=== PATIENT | male | born 1995 | race Caucasian/White ===

== ENCOUNTER 2016-09-13 13:52 | Emergency (ER) | payer BC ==
[2016-09-13] VITALS (14 sets, daily range): BP systolic 100–126; BP diastolic 60–76; PULSE 76–145; TEMP 36.8–36.9; O2SAT 98–99; Ht 177.8 cm; Wt 67.4 kg
[~2016-09-13] VITALS: Ht 177.8 cm; Wt 67.4 kg
[~2016-09-13 13:52] MED LIST: ASPI81TA28 PO; ATEN-173 PO; FAMO20TA11 PO; NAPR500T3 PO
[2016-09-13] MEDS ORDERED: ONDANSETRON INJ 2 MG/ML 2 ML VIAL IV STA (14:01)
[2016-09-13] MEDS ORDERED: SODIUM CHLORIDE 0.9% 1000ML 1,000 ML IV STA (14:01)
[2016-09-13] MEDS ORDERED: THIAMINE HCL 100 MG/ML 2 ML VIAL IV STA (14:04)
--- NOTE | 2016-09-13 14:08 | EMERGENCY ROOM VISIT NOTE ---
History Report prepared by Swapnil: Sofia Blood Under the Supervision of: Dr. Brad Key D.O. First contact with patient: 13:58 Chief Complaint: IRREGULAR HEARTBEAT Stated Complaint: A-FIB HX: CARDIAC Nursing Triage Summary: pt c/o afib started today at noon. has heart monitor has hx of afib. has needed to be shocked in past meds do not work History of Present Illness The patient is a 21 year old male who presents to the Emergency Room with complaints of a persistent irregular heartbeat. He reports he started experiencing atrial fibrillation around noon today. He admits to a history of atrial fibrillation and takes daily medication for it. He notes he has needed to be shocked in the past. The patient follows with Cardiologists back home in [place] and does not see anyone locally here [place]. He has been cardioverted 4 times in the past year and has recently undergone a cardiac catheterization and echocardiogram. The patient admits to some shortness of breath but denies any chest pain. He admits he drank alcohol last night and woke up "hungover" this morning. He vomited this morning and complains of a headache. He felt the atrial fibrillation begin after the last time he vomited this morning. He denies any recent illegal drug use. He denies any weakness or numbness or tingling in his feet. Source of History: patient Onset: 1200 today Position: chest Timing: other (persistent) Modifying Factors (Worsening): other Associated Symptoms: + SOB, + headache, + nausea, + vomiting, No chest pain Review of Systems See HPI for pertinent positives & negatives. A total of 10 systems reviewed and were otherwise negative. Past Medical & Surgical Medical Problems: (1) A-fib (2) Atrial fibrillation with RVR (3) Congenital heart defect Social History Smoking Status: Never Smoker Alcohol Use: occasionally Drug Use: marijuana Marital Status: single Housing Status: lives with roommate Occupation Status: [employer] Current/Historical Medications Scheduled Aspirin (Aspirin Ec), 81 MG PO DAILY Atenolol (Tenormin), 25 MG PO BID Bupropion Hcl (Wellbutrin Xl), 150 MG PO QAM Celecoxib (CeleBREX), 200 MG PO BID Allergies Coded Allergies: No Known Allergies (Unverified , 09/13/16) Physical Exam Vital Signs Date Time Temp Pulse Resp B/P Pulse Ox O2 Delivery O2 Flow Rate FiO2 09/13/16 17:43 116/74 09/13/16 17:30 76 18 126/76 98 Room Air 2.0 09/13/16 17:28 126/66 09/13/16 17:22 79 99 09/13/16 17:15 76 18 124/70 98 Room Air 09/13/16 17:13 122/68 09/13/16 17:08 116/69 09/13/16 17:05 36.9 76 18 111/70 98 Room Air 09/13/16 17:03 111/70 09/13/16 17:00 81 12 121/76 99 Room Air 09/13/16 16:58 121/76 09/13/16 16:55 81 12 114/60 99 Room Air 2.0 09/13/16 16:53 114/60 09/13/16 16:52 67 16 100 09/13/16 16:50 81 12 100/61 99 Room Air 2.0 09/13/16 16:48 100/61 09/13/16 16:45 81 12 105/65 99 Room Air 2.0 09/13/16 16:43 105/65 09/13/16 16:43 81 12 104/60 99 Room Air 2.0 09/13/16 16:42 104/60 09/13/16 16:41 90 8 108/60 99 Room Air 2.0 09/13/16 16:40 66 09/13/16 16:39 108/60 09/13/16 16:39 145 18 112/70 99 Nasal Cannula 2.0 09/13/16 16:38 112/70 09/13/16 16:37 102/54 09/13/16 16:36 145 18 107/65 99 Nasal Cannula 2.0 09/13/16 16:35 36.8 145 18 107/64 99 09/13/16 16:34 107/71 09/13/16 16:22 83 16 100 09/13/16 15:52 102 12 97 09/13/16 15:22 142 22 09/13/16 14:52 109 19 98 09/13/16 14:30 138 16 116/89 99 09/13/16 14:22 117 14 96 09/13/16 14:14 136 09/13/16 14:11 116/89 09/13/16 14:02 98 09/13/16 13:53 36.4 157 18 111/69 96 Room Air Physical Exam GENERAL: Patient is awake, alert, in no acute distress, patient is resting comfortably and showing no signs of anxiety EYES: Bilateral conjunctival injection. The pupils are round and reactive. EARS, NOSE, MOUTH AND THROAT: The nose is without any evidence of any deformity. Mucous membranes are dry, tongue is midline NECK: The neck is nontender and supple. RESPIRATORY: Normal respiratory effort is noted there is no evidence of wheezing rhonchi or rales CARDIOVASCULAR: Tachycardic heart rate and irregular rhythm noted, there are no definite murmurs noted to auscultation GASTROINTESTINAL: The abdomen is soft. Bowel sounds are present in all quadrants. Abdomen is nontender MUSCULOSKELETAL/EXTREMITIES: There is no evidence of gross deformity full range of motion is noted in the hips and shoulders SKIN: There is no obvious evidence of any rash. There are no petechiae, pallor or cyanosis noted. NEUROLOGIC: Patient is awake alert and oriented x3 Medical Decision & Procedures ER Provider Diagnostic Interpretation: This X-Ray was reviewed and interpreted by myself and the radiologist. CHEST ONE VIEW PORTABLE IMPRESSION: Negative chest. Electronically signed by: Reggie Oquendo M.D. 09/13/2016 2:26 PM Laboratory Results 09/13/16 14:10 Red Blood Count 5.34, Mean Corpuscular Volume 84.3, Mean Corpuscular Hemoglobin 30.5, Mean Corpuscular Hemoglobin Concent 36.2, Mean Platelet Volume 10.2, Neutrophils (%) (Auto) 82.4, Lymphocytes (%) (Auto) 9.1, Monocytes (%) (Auto) 7.4, Eosinophils (%) (Auto) 0.6, Basophils (%) (Auto) 0.3, Neutrophils # (Auto) 8.35, Lymphocytes # (Auto) 0.92, Monocytes # (Auto) 0.75, Eosinophils # (Auto) 0.06, Basophils # (Auto) 0.03 09/13/16 14:10 Test 09/13/16 14:10 White Blood Count 10.13 K/uL (4.8-10.8) Red Blood Count 5.34 M/uL (4.7-6.1) Hemoglobin 16.3 g/dL (14.0-18.0) Hematocrit 45.0 % (42-52) Mean Corpuscular Volume 84.3 fL (80-100) Mean Corpuscular Hemoglobin 30.5 pg (25-34) Mean Corpuscular Hemoglobin Concent 36.2 g/dl (32-36) Platelet Count 202 K/uL (130-400) Mean Platelet Volume 10.2 fL (7.4-10.4) Neutrophils (%) (Auto) 82.4 % Lymphocytes (%) (Auto) 9.1 % Monocytes (%) (Auto) 7.4 % Eosinophils (%) (Auto) 0.6 % Basophils (%) (Auto) 0.3 % Neutrophils # (Auto) 8.35 K/uL (1.4-6.5) Lymphocytes # (Auto) 0.92 K/uL (1.2-3.4) Monocytes # (Auto) 0.75 K/uL (0.11-0.59) Eosinophils # (Auto) 0.06 K/uL (0-0.5) Basophils # (Auto) 0.03 K/uL (0-0.2) RDW Standard Deviation 40.0 fL (36.4-46.3) RDW Coefficient of Variation 13.2 % (11.5-14.5) Immature Granulocyte % (Auto) 0.2 % Immature Granulocyte # (Auto) 0.02 K/uL (0.00-0.02) Prothrombin Time 11.4 SECONDS (9.0-12.0) Prothromb Time International Ratio 1.1 (0.9-1.1) Activated Partial Thromboplast Time 42.6 SECONDS (21.0-31.0) Partial Thromboplastin Ratio 1.6 Anion Gap 13.0 mmol/L (3-11) Est Creatinine Clear Calc Drug Dose 146.6 ml/min Estimated GFR () > 150.0 Estimated GFR (Non- 130.4 BUN/Creatinine Ratio 22.8 (10-20) Calcium Level 8.9 mg/dl (8.5-10.1) Magnesium Level 2.2 mg/dl (1.8-2.4) Total Bilirubin 0.6 mg/dl (0.2-1) Direct Bilirubin 0.1 mg/dl (0-0.2) Aspartate Amino Transf (AST/SGOT) 10 U/L (15-37) Alanine Aminotransferase (ALT/SGPT) 21 U/L (12-78) Alkaline Phosphatase 58 U/L (45-117) Troponin I < 0.015 ng/ml (0-0.045) Total Protein 8.0 gm/dl (6.4-8.2) Albumin 4.8 gm/dl (3.4-5.0) Lipase 181 U/L (73-393) Thyroid Stimulating Hormone (TSH) 1.050 uIu/ml (0.300-4.500) Free Thyroxine 1.08 ng/dl (0.80-1.60) Laboratory results per my review. Medications Administered Medications (Trade) Dose Ordered Sig/La Route Start Time Stop Time Status Last Admin Dose Admin Ondansetron HCl 4 mg 4 mg NOW STAT IV 09/13/16 14:01 09/13/16 14:03 DC 09/13/16 14:19 4 MG Sodium Chloride (Nss 1000ml) 1,000 ml @ 999 mls/hr Q1H1M STAT IV 09/13/16 14:01 09/13/16 15:01 DC 09/13/16 14:19 999 MLS/HR Thiamine HCl (Vitamin B-1 Inj) 100 mg NOW STAT IV 09/13/16 14:04 09/13/16 14:05 DC 09/13/16 14:18 100 MG Procedure Cardioversion note: Indication: Rapid Atrial Fibrillation Written consent was obtained after the risks and benefits were explained, including but not limited to pain, thermal burn, allergic reaction, aspiration, airway obstruction, laryngospasm, infection, hypotension, and cardiorespiratory arrest. At this time, the risks of the procedure are less than the risks of NOT performing the procedure. A time out was taken and the correct patient and procedure identified. The patient was on 100% via NRB and end tidal CO2 monitoring prior to the procedure. Suction, airway equipment, medications, respiratory equipment, ACLS cart, and appropriate personnel were prepared prior to the initiation of the procedure. Sedation was achieved utilizing 70 mg Propofol. Further details of the procedure can be found in Dr. lGoria note. ECG Indication: palpitations Rate (beats per minute): 153 Rhythm: atrial fibrillation Findings: RBBB, T-wave inversion (Lateral), other (no PVC) Change: no significant change (No significant change when compared to June 21, 2016) Change: 2nd EKG performed on 09/13/16: Normal sinus rhythm, rate of 68, no ectopy, no acute ST segment abnormalities, resolution of previously noted atrial fibrillation. ED Course 1358: The patient was evaluated in room A2. A complete history and physical examination were performed. 1401: NSS 1000 ml @ 999 mls/hr IV, Zofran 4 mg IV. 1404: Thiamine HCl 100 mcg IV. 1610: I discussed the patients case with Dr. Cates. He recommends performing cardioversion on the patient here in the ED. 1625: Etomidate 40 mg IV. 1629: Propofol 70 mg IV. 1740: I reevaluated the patient. He is feeling much better. I discussed his results and discharge instructions and he verbalized complete understanding and agreement. Medical Decision Prior records/ancillary studies reviewed. Triage Nursing notes reviewed. The patient's history was concerning for palpitations. Differential diagnosis: Etiologies such as premature contractions, electrolyte abnormality, cardiac dysrhythmia, thyroid dysfunction, pulmonary embolism, infection, gastrointestinal, as well as others were entertained. The patient is a 21-year-old male who presented to the emergency department for an evaluation of palpitations. The patient has a loop monitor which we were able to interrogate and determined that the patient went into atrial fibrillation at approximately 1230 this afternoon. The patient was treated with IV fluids in the emergency department. He also admits to significant alcoholic beverages last evening. I discussed the patient's laboratory radiographic studies with him. I also discussed the patient's condition with the on-call [facility] lithographic retoucher apprentice. At this time I do feel that the patient could be safely cardioverted using procedural sedation. The on-call lithographic retoucher apprentice agrees that this could be safe given the patient's acute onset of the atrial fibrillation and the success of these had with electrical cardioversion in the past. I discussed the risks and benefits of the procedural sedation as well as electrocardioversion with the patient. He agrees with the procedure this time. He is had this in the past. The patient was successfully electrical cardioverted using propofol for sedation. Please see the sedation as well as the procedure note for further details. The patient was reevaluated multiple times. The patient was feeling much better on subsequent reevaluation. The patient was encouraged to continue all medications as prescribed. He was also encouraged to avoid any further alcoholic beverages. He was encouraged to drink plenty clear liquids and follow-up with his primary care physician as well as his primary lithographic retoucher apprentice as soon as possible. He was also encouraged return to the emergency department immediately if symptoms change worsen or the need arises. Consults Time Called: 1605 Consulting Physician: Dr. Cates [facility] Returned Call: 1610 I discussed the patients case with Dr. Cates. He recommends performing cardioversion on the patient here in the ED. Impression Primary Impression: Atrial fibrillation with RVR Additional Impression: Palpitations Scribe Attestation The scribe's documentation has been prepared under my direction and personally reviewed by me in its entirety. I confirm that the note above accurately reflects all work, treatment, procedures, and medical decision making performed by me. Departure Information Dispostion Home / Self-Care Referrals No Doctor, Assigned (PCP) Patient Instructions ED Afib, ED Sedation Procedural Discon, [facility] Additional Instructions Follow-up with [facility] this week. Rest and avoid any strenuous activity. Continue all medications as prescribed. Drink plenty clear liquids and avoid any alcoholic beverages. Keep yourself well-hydrated. Return to the emergency department if symptoms change worsen or the need arises. Problem Qualifiers
[2016-09-13 14:19] LABS: BASO % 0.3 %; BASO ABS # 0.03 K/uL (0-0.2); COMPLETE YES; EOS % 0.6 %; IG% 0.2 %; LYMPH % 9.1 %; LYMPH ABS # 0.92 K/uL (1.2-3.4); MEAN CELL VOLUME 84.3 fL (80-100); MEAN CORPUSCULAR HEMOGLOBIN 30.5 pg (25-34); MEAN CORPUSCULAR HGB CONC 36.2 g/dl (32-36); MEAN PLATELET VOLUME 10.2 fL (7.4-10.4); MONO % 7.4 %; NEUT % 82.4 %; PLATELET COUNT 202 K/uL (130-400); RED BLOOD COUNT 5.34 M/uL (4.7-6.1); WHITE BLOOD COUNT 10.13 K/uL (4.8-10.8)
--- NOTE | 2016-09-13 14:28 | DIAGNOSTIC IMAGING REPORT ---
CHEST ONE VIEW PORTABLE CLINICAL HISTORY: CHEST PAIN dyspnea COMPARISON STUDY: 06/21/2016 FINDINGS: The bones soft tissues and hemidiaphragms are normal. The cardiomediastinal silhouette is normal. The lungs are clear. The pulmonary vasculature is normal. IMPRESSION: Negative chest. Electronically signed by: Reggie Oquendo M.D. 09/13/2016 2:26 PM Dictated Date/Time: 09/13/2016 2:26 PM
[2016-09-13 14:30] LABS: INR 1.1 (0.9-1.1); PARTIAL THROMBOPLASTIN RATIO 1.6; PROTHROMBIN TIME (PATIENT) 11.4 SECONDS (9.0-12.0)
[2016-09-13 14:51] LABS: ALT/SGPT 21 U/L (12-78); AST/SGOT 10 U/L (15-37); BLOOD UREA NITROGEN 17 mg/dl (7-18); BUN/CREATININE RATIO 22.8 (10-20); CALCIUM 8.9 mg/dl (8.5-10.1); CARBON DIOXIDE 23 mmol/L (21-32); CHLORIDE 108 mmol/L (98-107); CREATININE 0.76 mg/dl (0.60-1.40); GLUCOSE 83 mg/dl (70-99); MAGNESIUM 2.2 mg/dl (1.8-2.4); POTASSIUM 4.3 mmol/L (3.5-5.1); SODIUM 144 mmol/L (136-145)
[2016-09-13 14:59] LABS: ALKALINE PHOSPHATASE 58 U/L (45-117)
[2016-09-13] MEDS ORDERED: BUPRTAB PO (15:09)
[2016-09-13] MEDS ORDERED: CLB/200 PO (15:09)
[2016-09-13] MEDS ORDERED: ETOMIDATE 2 MG/ML 20 ML VIAL IV ONE (16:25)
[2016-09-13] MEDS ORDERED: PROPOFOL IV EMULSION 10 MG/ML 20 ML VIAL IV ONE (16:29)
--- NOTE | 2016-09-13 17:43 | EMERGENCY ROOM VISIT NOTE ---
ED Visit Note First contact with patient: 15:30 Procedure note: Electrical cardioversion Indication: atrial fibrillation Written consent was obtained after the risks and benefits were explained, including but not limited to pain, thermal burn, allergic reaction, aspiration, airway obstruction, laryngospasm, infection, hypotension, and cardiorespiratory arrest. At this time, the risks of the procedure are less than the risks of NOT performing the procedure. A time out was taken and the correct patient and procedure identified. The patient was on 100% via NRB and end tidal CO2 monitoring prior to the procedure. Suction, airway equipment, medications, respiratory equipment, ACLS cart, and appropriate personnel were prepared prior to the initiation of the procedure. Sedation was achieved utilizing Propofol. The biphasic defibrillator was set to 100 joules of energy and synched. After confirmation of sedation and "all clear" safety check the synchronized shock was delivered. This resulted in successful conversion of the dysrhythmia back into sinus rhythm at 83 BPM. See nursing notes for dosages and times. There were no complications and the patient recovered uneventfully from the procedure.
== END 2016-09-13 18:02 | disposition home or self-care (01) ==
LOC: C.EDB 13:53 → C.EDA 18:02
DX: I48.91 Unspecified atrial fibrillation (principal); R00.2 Palpitations; R51 Headache; R11.2 Nausea with vomiting, unspecified; Q24.9 Congenital malformation of heart, unspecified; F12.90 Cannabis use, unspecified, uncomplicated; R00.0 Tachycardia, unspecified; I45.10 Unspecified right bundle-branch block; Z79.82 Long term (current) use of aspirin

== ENCOUNTER 2016-12-05 12:00 | Emergency (ER) | payer BC ==
[~2016-12-05] VITALS: Ht 180.3 cm; Wt 67.2 kg
[~2016-12-05 12:00] MED LIST changes: +BUPRTAB PO; +CLB/200 PO; -FAMO20TA11 PO; -NAPR500T3 PO
[2016-12-05 12:01] VITALS: Ht 180.3 cm; Wt 67.2 kg
[2016-12-05 12:30] LABS: BASO % 0.4 %; BASO ABS # 0.03 K/uL (0-0.2); COMPLETE YES; EOS % 2.7 %; HEMATOCRIT 45.3 % (42-52); IG% 0.4 %; LYMPH % 14.5 %; LYMPH ABS # 1.07 K/uL (1.2-3.4); MEAN CELL VOLUME 84.7 fL (80-100); MEAN CORPUSCULAR HEMOGLOBIN 29.7 pg (25-34); MEAN CORPUSCULAR HGB CONC 35.1 g/dl (32-36); MEAN PLATELET VOLUME 9.8 fL (7.4-10.4); PLATELET COUNT 201 K/uL (130-400); RED BLOOD COUNT 5.35 M/uL (4.7-6.1); WHITE BLOOD COUNT 7.36 K/uL (4.8-10.8)
[2016-12-05] MEDS ORDERED: METOPROLOL TARTRATE 1 MG/ML VIAL IV STA (12:41)
[2016-12-05] MEDS ORDERED: SODIUM CHLORIDE 0.9% 1000ML 1,000 ML IV STA (12:41)
[2016-12-05 12:47] LABS: ALT/SGPT 22 U/L (12-78); AST/SGOT 10 U/L (15-37); BLOOD UREA NITROGEN 11 mg/dl (7-18); BUN/CREATININE RATIO 15.7 (10-20); CARBON DIOXIDE 27 mmol/L (21-32); CHLORIDE 107 mmol/L (98-107); CREATININE 0.69 mg/dl (0.60-1.40); GLUCOSE 104 mg/dl (70-99); MAGNESIUM 2.2 mg/dl (1.8-2.4); SODIUM 143 mmol/L (136-145)
[2016-12-05 12:49] LABS: ALKALINE PHOSPHATASE 59 U/L (45-117)
[2016-12-05 12:57] LABS: ISTAT CREATININE 0.6 mg/dl (0.6-1.3); ISTAT IONIZED CALCIUM 1.21 mmol/l (1.12-1.32)
[2016-12-05 13:00] VITALS: BP 130/72; PULSE 121; TEMP 36.8; O2SAT 96; O2SAT 99
[2016-12-05 13:01] LABS: INR 1.1 (0.9-1.1); PARTIAL THROMBOPLASTIN RATIO 1.8; PROTHROMBIN TIME (PATIENT) 11.5 SECONDS (9.0-12.0)
[2016-12-05] MEDS ORDERED: PROPOFOL IV EMULSION 10 MG/ML 20 ML VIAL IV ONE (13:05)
[2016-12-05 13:10] VITALS: BP 139/100; PULSE 139; O2SAT 99
--- NOTE | 2016-12-05 13:27 | EMERGENCY ROOM VISIT NOTE ---
Pre-Mod Sedation Assessment General Date of Moderate Sedation: Dec 05, 2016. Vital Signs: Vital Signs Past 12 Hours Date Time Temp Pulse Resp B/P Pulse Ox O2 Delivery O2 Flow Rate FiO2 12/05/16 13:22 105 12/05/16 13:18 142 12/05/16 13:12 133 12/05/16 13:00 144 21 98/63 96 Room Air 12/05/16 12:58 142 20 116/83 95 Room Air 12/05/16 12:56 133 116/83 12/05/16 12:26 139 13 128/74 95 Room Air 12/05/16 12:07 97 Room Air 12/05/16 12:01 36.5 86 20 140/80 96 Room Air Review Cardiovascular: no edema, no murmur, + tachycardia, + irregularly irregular Abdomen: normal bowel sounds, non tender, soft, no organomegaly, no pulsatile mass Lungs: chest non-tender, lungs clear, normal breath sounds, no respiratory distress, no accessory muscle use Airway Class: I Pre-Sedation Airway Assessment Oral Cavity: WNL Able to Visualize Vocal Cords: No Short Thick Neck: No Hx of Sleep Apnea: No Smoking Status: Never Smoker Mallampati Classification: Class I (Sft palate,uvula,fauces,pillar) ASA Classification: Class II (Afib RVR, recent ETOH) Procedure Planning Contraindications-for Mod Sed: None Yes Notes Patient attempted to eat bread 2 hours prior to sedation but immediately vomited it up. Aware risks of aspiration, vomiting, airway issues, etc. The planned sedation has been discussed with the patient and consent obtained. I have identified the patient, determined the appropriateness of sedation and have assessed the patient immediately prior to the procedure. All medicine(s) and interventions are by my order.
--- NOTE | 2016-12-05 13:28 | EMERGENCY ROOM VISIT NOTE ---
Post-Moderate Sedation Plan General Date of Moderate Sedation Dec 05, 2016. Vital Signs: Vital Signs Past 12 Hours Date Time Temp Pulse Resp B/P Pulse Ox O2 Delivery O2 Flow Rate FiO2 12/05/16 13:22 105 12/05/16 13:18 142 12/05/16 13:12 133 12/05/16 13:00 144 21 98/63 96 Room Air 12/05/16 12:58 142 20 116/83 95 Room Air 12/05/16 12:56 133 116/83 12/05/16 12:26 139 13 128/74 95 Room Air 12/05/16 12:07 97 Room Air 12/05/16 12:01 36.5 86 20 140/80 96 Room Air Review - Discharge Plan Post Moderate Sedation Plan: On clinical assessment, the patient appears to have tolerated the conscious sedation without complications. Patient is recovering as anticipated. Patient will continue to be monitored by nursing and may be discharged when conscious sedation discharge criteria are met.
--- NOTE | 2016-12-05 13:32 | EMERGENCY ROOM VISIT NOTE ---
ED Visit Note First contact with patient: 12:30 Procedural Sedation Indication: Cardioversion for Afib RVR. Last Ate: 11am - patient attempted to eat toast but vomiting shortly there-after Previous issues with sedation: none Snore: none Emergent: Yes ASA: 2 Dentures: none Time Out: 1310 Time Recovered: 1322 Total time: 20 minutes including pre-sedation discussions, sedation, post- sedation monitoring, etc Written consent was obtained after the risks and benefits were explained to the patient, including, but not limited to aspiration, allergic reaction, breathing difficulties, cardiac complications, vomiting, pain, event recall, bleeding, and /or infection. Discussed at length the risk of vomiting, especially fact that he attempted to eat 2 hours prior and has also already had some vomiting. Patient understands risks, and even discussed it with his mother who agrees with sedation. Pre-sedation examination and paperwork completed. The patient was on 100% oxygen via NRB prior to the procedure. Continuos end tidal CO2 monitoring, pulse oximetry, and cardiac monitoring were utilized. Suction, airway equipment, medications, respiratory equipment, and appropriate personnel were prepared prior to the initiation of the procedure. A time out was taken. Sedation was achieved utilizing 70 mg of propofol. After I observed the patient had reached the appropriate level of sedation the main procedure was performed without complication by Dr Medina. Sedation was discontinued and the monitoring continued. The patient recovered quickly from the effects of the medication without complication or adverse event.
[2016-12-05 13:48] VITALS: BP 125/79; PULSE 89; TEMP 36.9; O2SAT 97
[2016-12-05 14:19] VITALS: BP 139/84; PULSE 85; O2SAT 96
--- NOTE | 2016-12-05 18:46 | EMERGENCY ROOM VISIT NOTE ---
History Report prepared by Swapnil: Margret Fierro Under the Supervision of: Dr. Greg Medina M.D. First contact with patient: 12:09 Chief Complaint: IRREGULAR HEARTBEAT Stated Complaint: A-FIB HX: CARDIAC History of Present Illness The patient is a 21 year old male who presents to the Emergency Room with complaints of a constant irregular heartbeat beginning at 11:30AM today. The patient states that he was drinking last night, about 8-10 beers. He states that this morning he vomited from his hangover and this is when the irregular heartbeat began. He has a history of atrial fibrillation that occurs after drinking. He was told by his blocker and sewer to stop drinking. The patient states that this is the first time he drank since the atrial fibrillation occurred last time. He denies chest pain, loss of consciousness, shortness of breath or a fever. The patient denies being on blood thinners other than a baby aspirin which did not take today. Source of History: patient Onset: 1 hour OPERATIONS REPRESENTATIVE Position: other (global) Quality: other (irregular heartbeat) Timing: constant Modifying Factors (Relieving): other (none) Associated Symptoms: + vomiting, No LOC, No SOB, No chest pain, No fevers Review of Systems See HPI for pertinent positives & negatives. A total of 10 systems reviewed and were otherwise negative. Past Medical & Surgical Medical Problems: (1) A-fib (2) Atrial fibrillation with RVR (3) Congenital heart defect Family History Patient reports no known family medical history. Social History Smoking Status: Never Smoker Alcohol Use: occasionally Drug Use: marijuana Marital Status: single Housing Status: lives with roommate Occupation Status: [employer] student Current/Historical Medications Scheduled Aspirin (Aspirin Ec), 81 MG PO DAILY Atenolol (Tenormin), 25 MG PO BID Bupropion Hcl (Wellbutrin Xl), 150 MG PO QAM Celecoxib (CeleBREX), 200 MG PO BID Allergies Coded Allergies: No Known Allergies (Unverified , 09/13/16) Physical Exam Vital Signs Date Time Temp Pulse Resp B/P Pulse Ox O2 Delivery O2 Flow Rate FiO2 12/05/16 14:19 85 18 139/84 96 Room Air 12/05/16 13:55 89 0 98 12/05/16 13:54 125/74 12/05/16 13:50 88 0 97 12/05/16 13:49 125/76 12/05/16 13:48 36.9 89 17 125/79 97 Room Air 12/05/16 13:45 91 13 98 12/05/16 13:44 125/79 12/05/16 13:40 90 18 99 12/05/16 13:39 116/74 12/05/16 13:37 119/76 12/05/16 13:35 83 16 98 12/05/16 13:35 83 16 98 12/05/16 13:30 82 15 97 12/05/16 13:30 82 15 97 12/05/16 13:29 112/70 12/05/16 13:29 112/70 12/05/16 13:25 88 19 97 12/05/16 13:25 88 19 97 12/05/16 13:22 105 12/05/16 13:20 94 97 12/05/16 13:20 94 97 12/05/16 13:18 142 12/05/16 13:15 106 139/100 97 12/05/16 13:15 106 139/100 97 12/05/16 13:12 133 12/05/16 13:10 118 17 96 12/05/16 13:10 139 19 139/100 99 Nasal Cannula 2.0 12/05/16 13:10 118 17 96 12/05/16 13:05 107 19 95 12/05/16 13:05 107 19 95 12/05/16 13:01 130/75 12/05/16 13:01 130/75 12/05/16 13:00 148 21 98/63 95 12/05/16 13:00 36.8 121 19 130/72 99 Room Air 12/05/16 13:00 148 21 98/63 95 12/05/16 13:00 144 21 98/63 96 Room Air 12/05/16 12:58 142 20 116/83 95 Room Air 12/05/16 12:56 133 116/83 12/05/16 12:55 139 25 96 12/05/16 12:50 119 18 116/83 96 12/05/16 12:45 113 22 95 12/05/16 12:44 158/128 12/05/16 12:40 107 21 94 12/05/16 12:35 79 23 95 12/05/16 12:30 131 19 125/76 95 12/05/16 12:26 139 13 128/74 95 Room Air 12/05/16 12:25 103 14 128/74 94 12/05/16 12:20 131 13 12/05/16 12:07 97 Room Air 12/05/16 12:01 36.5 86 20 140/80 96 Room Air Physical Exam Constitutional: Vital signs reviewed. Eyes: Pupils are equal round reactive to light. Conjunctiva are noninjected. ENT: Pharynx is clear without erythema or exudate. Mucous membranes are moist. Neck supple without meningeal signs. Respiratory: Clear to auscultation bilaterally. Breath sounds are equal bilaterally. Cardiovascular: Irregularly irregular rhythm, rate of 141. GI: Soft, nondistended and nontender. Bowel sounds are present. Musculoskeletal: No peripheral edema. No lower extremity tenderness. Integumentary: No cyanosis. Neurological: The patient is awake and alert. No focal deficits. Psychiatric: Normal affect. Medical Decision & Procedures Laboratory Results 12/05/16 12:15 Red Blood Count 5.35, Mean Corpuscular Volume 84.7, Mean Corpuscular Hemoglobin 29.7, Mean Corpuscular Hemoglobin Concent 35.1, Mean Platelet Volume 9.8, Neutrophils (%) (Auto) 73.0, Lymphocytes (%) (Auto) 14.5, Monocytes (%) (Auto) 9.0, Eosinophils (%) (Auto) 2.7, Basophils (%) (Auto) 0.4, Neutrophils # (Auto) 5.37, Lymphocytes # (Auto) 1.07, Monocytes # (Auto) 0.66, Eosinophils # (Auto) 0.20, Basophils # (Auto) 0.03 12/05/16 12:15 Test 12/05/16 12:15 12/05/16 12:22 12/05/16 12:37 White Blood Count 7.36 K/uL (4.8-10.8) Red Blood Count 5.35 M/uL (4.7-6.1) Hemoglobin 15.9 g/dL (14.0-18.0) Hematocrit 45.3 % (42-52) Mean Corpuscular Volume 84.7 fL (80-100) Mean Corpuscular Hemoglobin 29.7 pg (25-34) Mean Corpuscular Hemoglobin Concent 35.1 g/dl (32-36) Platelet Count 201 K/uL (130-400) Mean Platelet Volume 9.8 fL (7.4-10.4) Neutrophils (%) (Auto) 73.0 % Lymphocytes (%) (Auto) 14.5 % Monocytes (%) (Auto) 9.0 % Eosinophils (%) (Auto) 2.7 % Basophils (%) (Auto) 0.4 % Neutrophils # (Auto) 5.37 K/uL (1.4-6.5) Lymphocytes # (Auto) 1.07 K/uL (1.2-3.4) Monocytes # (Auto) 0.66 K/uL (0.11-0.59) Eosinophils # (Auto) 0.20 K/uL (0-0.5) Basophils # (Auto) 0.03 K/uL (0-0.2) RDW Standard Deviation 38.6 fL (36.4-46.3) RDW Coefficient of Variation 12.6 % (11.5-14.5) Immature Granulocyte % (Auto) 0.4 % Immature Granulocyte # (Auto) 0.03 K/uL (0.00-0.02) Prothrombin Time 11.5 SECONDS (9.0-12.0) Prothromb Time International Ratio 1.1 (0.9-1.1) Activated Partial Thromboplast Time 45.6 SECONDS (21.0-31.0) Partial Thromboplastin Ratio 1.8 Est Creatinine Clear Calc Drug Dose 161.0 ml/min Estimated GFR () > 150.0 Estimated GFR (Non- 135.7 BUN/Creatinine Ratio 15.7 (10-20) Calcium Level 9.0 mg/dl (8.5-10.1) Magnesium Level 2.2 mg/dl (1.8-2.4) Total Bilirubin 0.5 mg/dl (0.2-1) Direct Bilirubin 0.1 mg/dl (0-0.2) Aspartate Amino Transf (AST/SGOT) 10 U/L (15-37) Alanine Aminotransferase (ALT/SGPT) 22 U/L (12-78) Alkaline Phosphatase 59 U/L (45-117) Total Protein 7.6 gm/dl (6.4-8.2) Albumin 4.5 gm/dl (3.4-5.0) Lipase 95 U/L (73-393) Bedside Troponin I 0.000 ng/ml (0-0.045) Bedside Hemoglobin 15.0 g/dl (14.0-18.0) Bedside Hematocrit 44 % (42-52) Bedside Sodium 143 mEq/L (135-144) Bedside Potassium 3.8 mEq/L (3.3-5.0) Bedside Chloride 102 mEq/L (101-112) Bedside Total CO2 23 mEq/l (24-31) Anion Gap 23.0 mmol/L (16-25) Bedside Blood Urea Nitrogen 10 mg/dl (7-18) Bedside Creatinine 0.6 mg/dl (0.6-1.3) Bedside Glucose (other) 99 mg/dl (70-99) Bedside Ionized Calcium (Gibran) 1.21 mmol/l (1.12-1.32) Laboratory results as reviewed by me. Medications Administered Medications (Trade) Dose Ordered Sig/La Route Start Time Stop Time Status Last Admin Dose Admin Metoprolol Tartrate 2.5 mg 2.5 mg NOW STAT IV 12/05/16 12:41 12/05/16 12:42 DC 12/05/16 12:56 2.5 MG Sodium Chloride (Nss 1000ml) 1,000 ml @ 999 mls/hr Q1H1M STAT IV 12/05/16 12:41 12/05/16 13:41 DC 12/05/16 12:55 999 MLS/HR Procedure Procedure note: Electrical cardioversion Indication: atrial fibrillation Written consent was obtained after the risks and benefits were explained, including but not limited to pain, thermal burn, allergic reaction, aspiration, airway obstruction, laryngospasm, infection, hypotension, and cardiorespiratory arrest. At this time, the risks of the procedure are less than the risks of NOT performing the procedure. A time out was taken and the correct patient and procedure identified. The patient was on 6 L of oxygen via nasal cannula prior to the procedure. Suction, airway equipment, medications, respiratory equipment , ACLS cart, and appropriate personnel were prepared prior to the initiation of the procedure. Sedation was achieved utilizing Propofol by Dr. Olson. The biphasic defibrillator was set to 100 joules of energy and synched. After confirmation of sedation and "all clear" safety check the synchronized shock was delivered. This resulted in successful conversion of the dysrhythmia back into sinus rhythm at 83 BPM. See nursing notes for dosages and times. There were no complications and the patient recovered uneventfully from the procedure. ECG Indication: other (atrial fibrillation) Rate (beats per minute): 141 Rhythm: atrial fibrillation Findings: nonspecific-ST abn, other (QRS 110 miliseconds) Change: 2nd ECG: Normal sinus rhythm, rate of 94, RSR pattern in lead 1, voltage criteria for hypertrophy present in previous on September 13. ED Course 1212: The patient was evaluated in room C4. A complete history and physical exam was performed. 1232: I spoke with Dr. Parks - Cardiology and he said to go ahead and cardiovert the patient. 1241: Sodium Chloride 1,000 ml @ 999 mls/hr IV, Lopressor Iv 2.5 mg IV. 1258: I talked with the patient about the risk of aspiration due to eating toast at 11:30am. He will talk to his mother but would prefer to go ahead with the sedation. He thinks that he vomited up the toast. The [employer] report of salon customer experience specialist shows he went into atrial fibrillation at 11:25am. 1302: Patient has a blood pressure of 98/63 and a heart rate of 129. He has no complaints other than irregular heart beat. He denies chest pain, shortness of breath or lightheadedness. He could not reach his mother and would like to go ahead with the cardioversion. He understands the risk of aspiration. 1320: See procedure note for electrical cardioversion. 1402: I reevaluated the patient. He has no symptoms and is in normal sinus rhythm. He is able to walk and drink. The patient is wide awake. He will follow up with cardiology. I discussed test results with the patient including his elevated PTT. 1405: Upon reevaluation, the patient appeared to have improvement of his symptoms. I discussed tonight's findings with him. He verbalized agreement of the treatment plan. He was discharged home. Medical Decision This is a 21-year-old male who presents with irregular heartbeat. Differential diagnosis includes dysrhythmia, holiday heart, atrial fibrillation with RVR, electrolyte abnormality, anxiety. I did perform a limited focused review of portions of the patient's old chart on the electronic medical record. The patient was seen September 13 for atrial fibrillation after drinking alcohol and waking up hung over and vomiting in the morning. He was cardioverted under sedation and went back to normal sinus rhythm. I did evaluate the patient as noted above. The patient is presenting with almost the exact same presentation for which she came in September. He has atrial fibrillation started after heavy drinking last night and vomiting this morning. He has no associated chest pain or shortness of breath or lightheadedness. He is in atrial fibrillation with RVR. IV access was established. The patient was placed on a continuous salon customer experience specialist. I did treat him with IV Lopressor and normal saline IV. I did order and personally review the patient's 12-lead EKG as described above. I did order and review the patient's blood work as noted in the electronic medical record. I did discuss the case with Dr. Parks of cardiology who agreed with electrical cardioversion. I did interrogate the patient's implanted salon customer experience specialist. This confirmed that he did go into atrial fibrillation at 11:25 AM today. I did discuss risks and benefits of conscious sedation and cardioversion with the patient. Dr. Olson did perform conscious sedation and I did perform electrical cardioversion as described above. A repeat twelve-lead EKG was obtained as described above. The patient was watched in the ED afterwards. He was asymptomatic and will follow up with his doctor. I did discuss the test results with the patient. He was told several times to avoid any alcohol, especially in excess. He was discharged in good condition. Consults Time Called: 1230 Consulting Physician: Dr. Charly Barrera Cardiology Returned Call: [address] Charly Ramos and he said to go ahead and cardiovert the patient. Impression Primary Impression: Atrial fibrillation with RVR Additional Impression: Elevated partial thromboplastin time (PTT) Scribe Attestation The scribe's documentation has been prepared under my direct and personally reviewed by me in its entirety. I confirm that the note above accurately reflects all work, treatment, procedures, and medical decision making performed by me. Departure Information Dispostion Home / Self-Care Referrals No Doctor, Assigned (PCP) Forms HOME CARE DOCUMENTATION FORM, IMPORTANT VISIT INFORMATION Patient Instructions Atrial Fibrillation Jose A, My [facility] Additional Instructions You have been examined and treated today on an emergency basis only. This is not a substitute for, or an effort to provide, complete comprehensive medical care. It is impossible to recognize and treat all injuries or illnesses in a single emergency department visit. It is therefore important that you follow up closely with your blocker and sewer. Call as soon as possible for an appointment. Return for worsening symptoms or if you develop chest pain, shortness of breath or any other concerning symptoms. Your blood work showed an elevated PTT. This was noted last year as well. Discussed this with your doctor. Problem Qualifiers
== END 2016-12-05 14:26 | disposition home or self-care (01) ==
LOC: C.EDB 12:03 → C.EDC 14:26
DX: I48.91 Unspecified atrial fibrillation (principal); R79.1 Abnormal coagulation profile; Z79.82 Long term (current) use of aspirin; R11.10 Vomiting, unspecified